=== PATIENT | female | born 1950 ===

== ENCOUNTER 2019-03-16 05:15 | Inpatient (IN) | payer OTHER ==
[~2019-03-16] VITALS: Ht 14.5 cm; Wt 71.2 kg
[~2019-03-16 05:15] MED LIST: ZANTAC300 MG PO
[2019-03-17] MEDS ORDERED: DOXYCYCLINE HY100 M2 PO (07:21)
== END 2019-03-17 14:27 | disposition home or self-care (01) | DRG 743 ==
LOC: CIR.AMB 05:15 → OB/GYN 10:48 → O/R 10:48 → CIR.AMB 11:30 → OB/GYN 14:35
PROVIDERS: ADMIT Obstetrics & Gynecology
PROC: 0UB98ZX Excision of Uterus, Via Natural or Artificial Opening Endoscopic, Diagnostic (ICD-10-PCS; 2019-03-16)
PROC: 0UB98ZZ Excision of Uterus, Via Natural or Artificial Opening Endoscopic (ICD-10-PCS; principal; 2019-03-16 07:00)
DX: N95.0 Postmenopausal bleeding (principal); N93.8 Other specified abnormal uterine and vaginal bleeding; D25.0 Submucous leiomyoma of uterus